=== PATIENT | male | born 1995 | race Caucasian/White ===

== ENCOUNTER 2020-12-05 12:54 | Emergency (ER) | payer OTHER ==
[2020-12-05] MEDS ORDERED: MOTRIN600 MG PO (15:36)
== END 2020-12-05 16:05 | disposition home or self-care (01) ==
LOC: FER 12:54
DX: S93.402A Sprain of unspecified ligament of left ankle, initial encounter (principal); F17.210 Nicotine dependence, cigarettes, uncomplicated; W51.XXXA Accidental striking against or bumped into by another person, initial encounter; Y93.67 Activity, basketball; Y92.830 Public park as the place of occurrence of the external cause
CPT/HCPCS: 73610